=== PATIENT | female | born 1970 | race Caucasian/White ===

== ENCOUNTER 2017-06-28 22:57 | Emergency (ER) | payer OTHER ==
[~2017-06-28] VITALS: Ht 160 cm; Wt 51.7 kg
[2017-06-28 23:19] VITALS: BP 115/71
[2017-06-29] MEDS ORDERED: TDAP [DIPH/PERTUSSIS/TET] 0.5 ML VIAL IM ONE ×2 (02:59→03:00)
[2017-06-29] MEDS ORDERED: LIDOCAINE 0.5% HCL 50 ML VIAL IJ ONE (03:00)
--- NOTE | 2017-06-29 03:11 | NUR ---
AT BEDSIDE FOR STITCHING
== END 2017-06-29 03:57 | disposition home or self-care (01) ==
LOC: ER 23:00
DX: S61.011A Laceration without foreign body of right thumb without damage to nail, initial encounter (principal); E03.9 Hypothyroidism, unspecified; D69.6 Thrombocytopenia, unspecified; W45.8XXA Other foreign body or object entering through skin, initial encounter; Y93.89 Activity, other specified; Y92.89 Other specified places as the place of occurrence of the external cause; Y99.8 Other external cause status
CPT/HCPCS: 12001; 90471; 90715; 99283; A4606; Z7610